=== PATIENT | male | born 1955 | race Caucasian/White ===

== ENCOUNTER 2017-01-01 12:37 | Emergency (ER) | payer OTHER ==
[~2017-01-01] VITALS: Ht 188 cm; Wt 118.2 kg
[~2017-01-01 12:37] MED LIST: ASP81TEC PO; CITA20TA PO; GABA600T PO
[2017-01-01 12:49] VITALS: BP 115/75; PULSE 75; RESP 20; O2SAT 99
--- NOTE | 2017-01-01 14:07 | ED.REPORT ---
HPI-Extremity Problem Lower Date of Service Jan 01, 2017 ED Provider: History of Present Illness: ongoing groin pain, worse today. yolis was primary care. ibuprofen usually helps, but not today. thc no help. same pain but worse. Nursing Notes Stated Complaint: LEFT GROIN NERVE PAIN Chief Complaint: Extremity Trauma Nursing Notes Reviewed: Yes Allergies: Coded Allergies: morphine (Verified Allergy, Severe, PERSONALITY CHANGE, 05/10/11) Scheduled Aspirin-Expunged Drug, Do Not Renew! (Aspirin EC-Expunged Drug, Do Not Renew!) 81 Mg Tablet 81 MG PO DAILY Citalopram-Expunged Drug, Do Not Renew! (Citalopram-Expunged Drug, Do Not Renew! ) 20 Mg Tablet 20 MG PO AM Gabapentin-Expunged Drug, Do Not Renew! (Neurontin-Expunged Drug, Do Not Renew! ) 600 Mg Tablet 600 MG PO BID General Time Seen by MD: 14:06 Chief Complaint Other (left pamela pain) Hx Obtained From: Patient Additional Notes: patient is able to point to the site of pain Past Medical History Past Medical History Notes: has seen frances Daley. thought it was his back, no improvement with injections Past Medical History Denies: Asthma, Diabetes mellitus Past Surgical History feet and hands, many hernias, right knee and elbow and brain surgery Reports: Appendectomy (, many hernias) Smoking History Never Smoker Social History Alcohol Use: Denies alcohol use Drug Use: THC Other Social History: Occupation lives in [address] [employer] [facility] [employer] in [place] Ambulatory Status Independent Review of Systems Basic Review of Systems Eyes: Vision NL, No discharge : No dysuria, No frequency Psychiatric: Normal thought content Physical Exam Initial Vital Signs Vital Signs (First) Date Time Temp Pulse Resp B/P Pulse Ox O2 Delivery O2 Flow Rate FiO2 01/01/17 12:49 36.6 75 20 115/75 99 Room Air Initial VS: Reviewed, Vital signs normal General/Constitutional: Well-developed, Well-nourished Head / Eyes: Atraumatic, Normocephalic, PERRL ENT: Mucous membranes moist, Conjunctiva normal, No scleral icterus Neck: Supple, Non-tender, Full range of motion Respiratory: Breath sounds normal, Clear to auscultation, No respiratory distress Cardiovascular: Regular rate & rhythm, Heart sounds normal, Intact distal pulses Abdomen / GI: Soft, Non-tender, No guarding, No rebound, No distention Back: No CVA tenderness Lymphatic: No lymphadenopathy Upper Extremities: Vascular intact, Neuro intact, No swelling, No tenderness Skin: Warm, Dry, No cyanosis Neurologic: Alert, Oriented, Nonfocal Psychiatric: Mood/affect normal, Behavior normal, Normal thought content pain is in flexeral fold between leg and scrotum. Exam shows the site feels boggy, like varicose veins or shotty lymph nodes. no erthyma Interpretation & Diagnostics Interpretation & Diagnostics: PROCEDURE: CT PELVIS WITH CONTRAST ([id number]) INDICATIONS: inguinal pain TECHNIQUE: After the administration of intravenous contrast, 5 mm thick sections acquired from the iliac crests to the symphysis. 5 mm coronal and sagittal reformats were acquired. For radiation dose reduction, the following was used: automated exposure control, adjustment of mA and/or kV according to patient size. COMPARISON: None. FINDINGS: Image quality: Excellent. Peritoneum and bowel: Bowel loops demonstrate normal wall thickness and caliber. No free fluid or air. Genitourinary: Bladder wall thickness is normal. Nodes and vessels: No iliac, pelvic, or inguinal adenopathy by size criteria. Iliac vessels demonstrate normal size and enhancement. Bones: No suspicious bony lesions. Miscellaneous: No inguinal hernias. IMPRESSION: Cause of sharp inguinal pain on the left is not identified. No abnormal mass, adenopathy, or edema is seen. Dictated by: Anderson Bergeron M.D. on 01/01/2017 at 16:09 Approved by: Anderson Bergeron M.D. on 01/01/2017 at 16:29 Lab Results Interpretation Result Diagram: 01/01/17 1451 01/01/17 1451 Test 01/01/17 14:51 White Blood Count 9.1th/mm3 (3.8-10.1) Red Blood Count 5.05mil/mm3 (4.40-5.80) Hemoglobin 15.8g/dL (13.8-17.2) Hematocrit 44.3% (41.0-50.0) Mean Corpuscular Volume 87.7fL (81-100) Mean Corpuscular Hemoglobin 31.3pg (27.0-35.0) Mean Corpuscular Hemoglobin Concent 35.7% (32.0-37.0) Red Cell Distribution Width 12.4% (12.3-15.4) Platelet Count 238bil/L (150-400) Neutrophils (%) (Auto) 53.4% (40-74) Lymphocytes (%) (Auto) 33.9% (14-46) Monocytes (%) (Auto) 8.7% (4-12) Eosinophils (%) (Auto) 3.5% (0-5) Basophils (%) (Auto) 0.4% (0-3) Erythrocyte Sedimentation Rate 1mm/hr (0-30) Sodium Level 138mEq/L (134-144) Potassium Level 4.8mEq/L (3.5-5.2) Chloride Level 99mEq/L (97-108) Carbon Dioxide Level 26mmol/L (18-29) Blood Urea Nitrogen 29mg/dL (8-27) Creatinine 0.87mg/dL (0.76-1.27) Estimat Glomerular Filtration Rate 95mL/min (>59) Glucose Level 123mg/dL (60-99) Calcium Level 9.7mg/dL (8.5-10.1) Total Bilirubin 0.5mg/dL (0.0-1.2) Aspartate Amino Transf (AST/SGOT) 25U/L (0-50) Alanine Aminotransferase (ALT/SGPT) 28U/L (0-44) Alkaline Phosphatase 100U/L (25-160) C-Reactive Protein 0.2mg/dL (0.0-0.5) Total Protein 6.9g/dL (6.4-8.4) Albumin 4.1g/dL (3.4-5.0) Hold Salas Top Tube Received (Received) US Soft Tissue/Musculoskeletal PROCEDURE: US UNLISTED SONOGRAM ([id number]) INDICATIONS: pain in left groin, rule out varix, adenopathy, inflammation, cause of pain. COMPARISON: [facility], MR, HIP LT W/ CONTRAST, 12/25/2014, 15:50. FINDINGS: Imaging of the right and left groin was performed. The right is for comparison. In the left inguinal area no abnormality is seen. No vascular abnormality is seen no adenopathy is seen no fluid collections are seen IMPRESSION: Cause of pain in the left inguinal area is not appreciated. Dictated by: Anderson Bergeron M.D. on 01/01/2017 at 19:19 Approved by: Anderson Bergeron M.D. on 01/01/2017 at 19:21 Re-Eval/Medical Decision Med Decision/Clinical Course 61 year old male presents for evualation of ongoing groin pain which has increased in intensity this am. Reporting it normally is 5/10 pain and now is 12/10. Does not report any change in activity. Pain is presnt at rest as well as walking. Position does not change pain. No sign of any aneursym or varicosities or increase in lymph node. Us is negative as is CT of inguinal area Discharge & Departure Impression: Primary Impression: Left inguinal pain Disposition: Home Additional Instructions: The ultrasound does not provide any answers. The CT does not show any abnormalities. No sign of varicose veins or enlarged lymph nodes. There has been minimal pain relief with toradol. Use percocet 1 up to 2 times a day as needed for severe unrelenting pain. Do a trial of wearing compression spandex to see if that help. Also accupuncture is an option. Ortho would probable be the next stop to see if the pain is some how related to your back pain. I am sorry that you are experiencing this. Please follow with primary care. Referrals: Richa Arnold MD (PCP) EDSupervising Provider for APC: Akbar Deluna MD copies to: Richa Arnold MD, Sue ARNP Jan 01, 2017 14:07
[2017-01-01 14:59] LABS: BASOPHILS % (AUTO) 0.4 % (0-3); EOSINOPHILS % (AUTO) 3.5 % (0-5); MONOCYTES % (AUTO) 8.7 % (4-12); Mean Corpuscular Hemoglobin 31.3 pg (27.0-35.0); Mean Corpuscular Volume 87.7 fL (81-100); NEUTROPHILS % (AUTO) 53.4 % (40-74); Platelet Count 238 bil/L (150-400)
[2017-01-01 15:19] LABS: ERYTHROCYTE SEDIMENTATION RATE 1 mm/hr (0-30)
--- NOTE | 2017-01-01 16:31 | DRSVH ---
PROCEDURE: CT PELVIS WITH CONTRAST ([id number]) INDICATIONS: inguinal pain TECHNIQUE: After the administration of intravenous contrast, 5 mm thick sections acquired from the iliac crests to the symphysis. 5 mm coronal and sagittal reformats were acquired. For radiation dose reduction, the following was used: automated exposure control, adjustment of mA and/or kV according to patient size. COMPARISON: None. FINDINGS: Image quality: Excellent. Peritoneum and bowel: Bowel loops demonstrate normal wall thickness and caliber. No free fluid or a ir. Genitourinary: Bladder wall thickness is normal. Nodes and vessels: No iliac, pelvic, or inguinal adenopathy by size criteria. Iliac vessels demonst rate normal size and enhancement. Bones: No suspicious bony lesions. Miscellaneous: No inguinal hernias. IMPRESSION: Cause of sharp inguinal pain on the left is not identified. No abnormal mass, adenopathy, or edema is seen. Dictated by: Anderson Bergeron M.D. on 01/01/2017 at 16:09 Approved by: Anderson Bergeron M.D. on 01/01/2017 at 16:29
[2017-01-01 16:49] VITALS: BP 132/71; PULSE 70; O2SAT 94
[2017-01-01] MEDS ORDERED: oxyCODONE-Acetamin 5-325 mg Tablet PO ONE (17:05)
[2017-01-01 17:17] VITALS: BP 132/71; PULSE 70; RESP 20; O2SAT 94
--- NOTE | 2017-01-01 19:23 | DRSVH ---
PROCEDURE: US UNLISTED SONOGRAM ([id number]) INDICATIONS: pain in left groin, rule out varix, adenopathy, inflammation, cause of pain. COMPARISON: [facility], MR, HIP LT W/ CONTRAST, 12/25/2014, 15:50. FINDINGS: Imaging of the right and left groin was performed. The right is for comparison. In the lef t inguinal area no abnormality is seen. No vascular abnormality is seen no adenopathy is seen no flui d collections are seen IMPRESSION: Cause of pain in the left inguinal area is not appreciated. Dictated by: Anderson Bergeron M.D. on 01/01/2017 at 19:19 Approved by: Anderson Bergeron M.D. on 01/01/2017 at 19:21
== END 2017-01-01 17:17 | disposition home or self-care (01) ==
LOC: SED 12:37
DX: R10.30 Lower abdominal pain, unspecified (principal); Z88.5 Allergy status to narcotic agent
CPT/HCPCS: 36415; 72193; 76999; 80053; 85025; 85651; 86140; 96372; 99285; J1885; Q9967